=== PATIENT | male | born 1935 | race Hispanic/Latino ===

== ENCOUNTER 2017-01-17 20:42 | Emergency (ER) | payer MEDICARE, MEDICAID ==
[2017-01-17 20:52] VITALS: BP 130/83; PULSE 72; RESP 18; TEMP 97.6; O2SAT 99
--- NOTE | 2017-01-17 21:40 | ED PDOC ---
HPI: Trauma/Fall - HPI Time Seen by Provider: 01/17/17 21:03 Chief Complaint (Nursing): Trauma Chief Complaint (Provider): Trauma History Per: Patient History/Exam Limitations: no limitations Onset/Duration Of Symptoms: Hrs (occured at 4:30 PM) Location Of Injury: Right: Forearm, Knee, Thigh Additional Complaint(s): Aleksandra Duran is an 81 year old male with a history of atrial fibrillation for which he takes Xarelto that presents to the ED after he slipped and fell down four stairs today at 4:30 PM. Patient denies head injury, head pain, or right arm pain, but reports pain to his right thigh. Patient also sustained an abrasion to his right arm near his elbow. Past Medical History Reviewed: Historical Data, Nursing Documentation, Vital Signs Vital Signs: Last Vital Signs Temp 97.6 F 01/17/17 20:51 Pulse 72 01/17/17 20:51 Resp 18 01/17/17 20:51 BP 130/83 01/17/17 20:51 Pulse Ox 99 01/17/17 20:51 - Medical History PMH: Atrial Fibrillation, CVA, Parkinson's Disease Denies: HIV, Chronic Kidney Disease - Family History Family History: States: Stroke - Home Medications Home Medications: Ambulatory Orders Medication Instructions Recorded Rivaroxaban [Xarelto] 20 mg PO QD5 #0 tab 01/05/15 Metoprolol Tartrate [Lopressor] 25 mg PO Q12 #0 tab 11/03/15 Pravastatin Sodium [Pravachol] 20 mg PO DAILY #0 tab 11/03/15 Acetaminophen [Pain Reliever] 500 mg PO Q4 #30 tablet 01/17/17 - Allergies Allergies/Adverse Reactions: Allergies Allergy/AdvReac Type Severity Reaction Status Date / Time No Known Allergies Allergy Verified 01/04/15 12:10 Review of Systems Musculoskeletal: Positive for: Leg Pain (right thigh pain). Negative for: Arm Pain (denies arm pain, but sustained abrasion to right forearm) Neurological: Negative for: Headache (denies head injury) Physical Exam - Reviewed Nursing Documentation Reviewed: Yes Vital Signs Reviewed: Yes - Physical Exam Appears: Positive for: Non-toxic, No Acute Distress Head Exam: Positive for: ATRAUMATIC, NORMOCEPHALIC Skin: Positive for: Normal Color, Warm Eye Exam: Positive for: Normal appearance, EOMI, PERRL Cardiovascular/Chest: Positive for: Regular Rate, Rhythm. Negative for: Murmur Respiratory: Positive for: Normal Breath Sounds. Negative for: Wheezing Gastrointestinal/Abdominal: Positive for: Normal Exam, Other (no pelvic TTP.) Extremity: Positive for: Other (Abrasion to right forearm, abrasion to right knee, hematoma to right hip.). Negative for: Normal ROM (Near full ROM right hip and right knee, limited secondary to pain only.) - ECG O2 Sat by Pulse Oximetry: 99 (RA) Pulse Ox Interpretation: Normal Medical Decision Making Medical Decision Making: Impression: Hematoma s/p fall on anti-coagulant Plan: * X-Ray Right Hip * X-Ray Right Femur * X-Ray Right Knee * Acetaminophen 650 mg PO * Ice * Reevaluation 2330 Xrays negative. Explained to patient to ice thigh at home. Leg re-examined, no expanding hematoma palpated. Return precautions given. Told patient to f/u w/ PMD. Scribe Attestation: Documented by Yanet Martinez, acting as a scribe for Derik Mulligan MD. Provider Scribe Attestation: All medical record entries made by the Scribe were at my direction and personally dictated by me. I have reviewed the chart and agree that the record accurately reflects my personal performance of the history, physical exam, medical decision making, and the department course for this patient. I have also personally directed, reviewed, and agree with the discharge instructions and disposition. Disposition - Clinical Impression Clinical Impression: Thigh pain - Disposition Referrals: Dioni Sandra MD [Staff Provider] - Disposition Time: 23:30 Condition: STABLE Prescriptions: Acetaminophen [Pain Reliever] 500 mg PO Q4 #30 tablet Instructions: Contusion in Adults (DC), Leg Pain (ED), Hematoma (ED) Forms: Plaid (Persian)
--- NOTE | 2017-01-18 10:18 | RAD ---
PROCEDURE: Right Knee Radiographs. HISTORY: s/p fall COMPARISON: None. FINDINGS: BONES: There is no acute displaced fracture or bone destruction. Bone alignment is normal. There is diffuse bone demineralization. JOINTS: There is mild tricompartmental degenerative osteoarthrosis with reduced joint spaces, marginal osteophytes and tibial spiking, worse in the medial compartment. JOINT EFFUSION: None. OTHER FINDINGS: None. IMPRESSION: No acute fracture or dislocation. Mild tricompartmental degenerative osteoarthrosis, worse in the medial compartment.
--- NOTE | 2017-01-18 10:31 | RAD ---
PROCEDURE: Right Hip Radiographs. HISTORY: s/p fall COMPARISON: None. FINDINGS: BONES: There is no acute displaced fracture or bone destruction. Bone alignment is normal. There is diffuse bone demineralization. JOINTS: Mild tricompartmental degenerative osteoarthrosis in the knee joint. SOFT TISSUES: Normal. OTHER FINDINGS: None. IMPRESSION: No acute displaced fracture or dislocation.Please note occult fractures cannot be excluded on plain radiographs. If there is a persistent clinical concern, an MRI may be performed for further evaluation.
--- NOTE | 2017-01-18 10:34 | RAD ---
PROCEDURE: Right Hip Radiographs. HISTORY: s/p fall COMPARISON: None. FINDINGS: BONES: There is no acute displaced fracture or bone destruction. Bone alignment is normal. There is mild diffuse bone demineralization. JOINTS: Normal. SOFT TISSUES: Normal. OTHER FINDINGS: Atherosclerotic vascular calcifications are present. IMPRESSION: No acute displaced fracture or dislocation. Please note occult fractures cannot be excluded on plain radiographs. If there is a persistent clinical concern, an MRI of the hip may be performed for further evaluation.
== END 2017-01-18 00:18 | disposition home or self-care (01) ==
LOC: H.ER 20:42
DX: S79.921A Unspecified injury of right thigh, initial encounter (principal); S40.811A Abrasion of right upper arm, initial encounter; W10.9XXA Fall (on) (from) unspecified stairs and steps, initial encounter; Y92.89 Other specified places as the place of occurrence of the external cause; G20 Parkinson's disease; Z79.01 Long term (current) use of anticoagulants; Z86.73 Personal history of transient ischemic attack (TIA), and cerebral infarction without residual deficits